=== PATIENT | female | born 1970 | race African-American/Black ===

== ENCOUNTER 2023-12-27 14:03 | Outpatient (CLI) | payer BC | END 2023-12-27 14:04 | disposition home or self-care (01) | LOC: CSHDTY/OP 14:03 | PROVIDERS: ATTEND Specialist | DX: E66.01 Morbid (severe) obesity due to excess calories (principal) | CPT/HCPCS: 97802 ==

== ENCOUNTER 2024-01-27 08:48 | Outpatient (CLI) | payer BC | END 2024-01-27 08:49 | disposition home or self-care (01) | LOC: CSHDTY/OP 08:48 | PROVIDERS: ATTEND Specialist | DX: E66.01 Morbid (severe) obesity due to excess calories (principal) | CPT/HCPCS: 97802 ==